=== PATIENT | female | born 1935 | race Caucasian/White ===

== ENCOUNTER → 2017-07-08 | Outpatient (CLI) | payer OTHER, BC ==
[~2017-07-08] MED LIST: ARICEPT10 M1 PO; ESCITALOPRAM OXA5 MG PO; MOBIC15 MG PO; NAMENDA 10 MG T10 MG PO; SIMVASTATIN20 MG PO; ULTRAM 50MG TAB50 MG PO; ZOCOR40 MG PO
== END ==
LOC: RAD 08:17
DX: M25.461 Effusion, right knee (principal)